=== PATIENT | male | born 1975 | race Two or more races ===

== ENCOUNTER 2025-08-18 19:56 | Inpatient (IN) | payer OTHER ==
[2025-08-18 20:05] VITALS: BMI 20.3
[2025-08-18] MEDS ORDERED: MAG HYDROX/AL HYDROX/SIMETH 30 ML UNIT-DOSE CUP PO PRN (21:08)
[2025-08-18] MEDS ORDERED: POLYETHYLENE GLYCOL (HEALTHYLAX) 3350 17 GM PACKET PO PRN (21:08)
[2025-08-18] MEDS ORDERED: BENZONATATE 200 MG CAPSULE PO PRN (21:08)
[2025-08-18] MEDS ORDERED: IBUPROFEN 400 MG TABLET (FP) PO PRN (21:08)
[2025-08-18] MEDS ORDERED: guaiFENesin 600 MG TABLET.ER (FP) PO PRN (21:08)
[2025-08-18] MEDS ORDERED: LOPERAMIDE HCL 2 MG CAPSULE PO PRN (21:08)
[2025-08-18] MEDS ORDERED: MAGNESIUM HYDROX 2400MG/30ML ORAL SUSPENSION 30 ML CUP PO PRN (21:08)
[2025-08-18] MEDS ORDERED: NICOTINE POLACRILEX 2 MG GUM BUC PRN (21:08)
[2025-08-18] MEDS ORDERED: BENZOCAINE/MENTHOL (CHLORASEPTIC ) LOZENGE MM PRN (21:08)
[2025-08-18] MEDS ORDERED: NALOXONE (NARCAN) HCL 4 MG/0.1 ML SPRAY NS PRN (21:08)
[2025-08-18] MEDS ORDERED: ACETAMINOPHEN 325 MG TABLET (FP) PO PRN (21:08)
[2025-08-18] MEDS: MELATONIN 5 MG TABLETS PO SCH (23:42)
[2025-08-18] MEDS: THIAMINE 100 MG TABLET PO SCH (23:43)
[2025-08-19] MEDS: IBUPROFEN 600 MG TABLET (FP) PO PRN (01:10)
[2025-08-19] MEDS: AMOX TR/POT CLAV 875MG/125MG TABLETS (FP) PO SCH (07:11)
[2025-08-19 10:16] LABS: MCHC 30.6 g/dl (32.3-36.5); MEAN CELL VOLUME 92.5 fl (79.0-92.2); MEAN PLT VOLUME 9.0 fl (9.4-12.4); RDW 16.2 % (12.1-15.9)
[2025-08-19 10:21] LABS: GLUCOSE,RANDOM 79 mg/dL (74-106); TOT PROT 7.5 g/dl (6.4-8.2)
[2025-08-19 10:22] LABS: CO2 30 mmol/L (21-32)
[2025-08-19 10:24] LABS: ALK PHOS 96 U/L (40-150)
[2025-08-19 10:26] LABS: SGOT/AST 58 U/L (5-34); SGPT/ALT 73 U/L (0-55)
[2025-08-19 10:27] LABS: CREATININE 1.08 mg/dL (0.55-1.3)
[2025-08-19] MEDS: amLODIPine BESYLATE 5 MG TABLET (FP) PO SCH (10:53)
[2025-08-19] MEDS: PRENATAL VITAMINS W/ FOLIC ACID TABLET (FP) PO SCH (10:53)
[2025-08-19] MEDS: NICOTINE 21 MG/24 HOURS TOPICAL PATCH TD SCH (10:54)
[2025-08-19] MEDS ORDERED: TUBERCULIN PPD 5 TU/0.1ML VIAL ID ONE (10:54)
[2025-08-19] MEDS: TUBERCULIN PPD 5 TU/0.1ML SYRINGE (IN PATIENT USE ONLY) ID ONE (10:58)
[2025-08-19] MEDS: GABAPENTIN 300 MG CAPSULE PO SCH (21:08)
[2025-08-19] MEDS: clonazePAM 1 MG ODT TABLETS SL SCH (21:08)
[2025-08-20] MEDS: clonazePAM 0.5 MG ODT TABLETS SL SCH (10:06)
[2025-08-20] MEDS ORDERED: DICYCLOMINE HCL 10 MG CAPSULE PO PRN (12:44)
[2025-08-20] MEDS ORDERED: BISMUTH SUBSALICYLATE 524 MG/30 ML PO PRN (12:44)
[2025-08-20] MEDS ORDERED: ONDANSETRON *ODT* 4 MG TABLET SL PRN (12:44)
[2025-08-20] MEDS: hydrOXYzine PAMOATE 25 MG CAPSULE (FP) PO PRN (15:16)
[2025-08-21] MEDS: amLODIPine BESYLATE 10 MG TABLET (FP) PO SCH (09:19)
[2025-08-22 07:38] VITALS: TEMP 98
[2025-08-22] MEDS ORDERED: LISINOPRIL 10 MG TABLET PO SCH (10:00)
[2025-08-22] MEDS: LISINOPRIL 10 MG TABLET PO SCH (10:14)
[2025-08-22 12:25] VITALS: BP 151/94; PULSE 108; RESP 15
== END 2025-08-22 16:00 | disposition left against medical advice (07) | DRG 770 ==
LOC: YASAS 19:56 → Y3E 22:24
PROVIDERS: ADMIT Psychiatry & Neurology Pain Medicine; ATTEND Psychiatry & Neurology Pain Medicine
PROC: HZ42ZZZ Group Counseling for Substance Abuse Treatment, Cognitive-Behavioral (ICD-10-PCS; principal; 2025-08-18)
DX: F11.20 Opioid dependence, uncomplicated (principal); F13.20 Sedative, hypnotic or anxiolytic dependence, uncomplicated; F14.20 Cocaine dependence, uncomplicated; F32.A Depression, unspecified; F41.1 Generalized anxiety disorder; I10 Essential (primary) hypertension; G47.00 Insomnia, unspecified; L02.31 Cutaneous abscess of buttock; Z87.01 Personal history of pneumonia (recurrent); Z56.0 Unemployment, unspecified; Z59.00 Homelessness unspecified
CPT/HCPCS: 36415; 80053; 80307; 85027; 86780; 93005; 93010